=== PATIENT | male | born 1990 | race Asian ===

== ENCOUNTER 2017-02-07 10:41 | Outpatient (CLI) | payer MEDICAID | END 2017-02-07 10:42 | disposition home or self-care (01) | DX: Z00.00 Encounter for general adult medical examination without abnormal findings (principal); E66.9 Obesity, unspecified; R10.13 Epigastric pain ==

== ENCOUNTER 2017-05-20 13:19 | Outpatient (CLI) | payer MEDICAID ==
--- NOTE | 2017-05-20 15:23 | XRAY Report ---
EXAM: RIGHT ANKLE RADIOGRAPHY EXAM DATE: 05/20/2017 01:30 PM. CLINICAL HISTORY: Right ankle sprain COMPARISON: None. TECHNIQUE: 3 views. FINDINGS: Bones: Normal. No fractures or bone lesions. Joints: Normal alignment. The ankle mortise is symmetric. No tibiotalar joint effusion. Soft Tissues: Diffuse soft tissue swelling. IMPRESSION: No acute bony abnormality. [facility] Referring Provider Line: [phone] SITE ID: [id number]
== END 2017-05-20 13:20 | disposition home or self-care (01) ==
LOC: DI 13:19
PROVIDERS: ATTEND Family Medicine
DX: S93.491A Sprain of other ligament of right ankle, initial encounter (principal)